=== PATIENT | female | born 1995 | race Caucasian/White ===

== ENCOUNTER 2023-10-09 07:40 | Emergency (ER) | payer OTHER, MEDICAID, SELFPAY ==
[2023-10-09 07:45] VITALS: BP 134/84; PULSE 67; RESP 17; TEMP 36.6; O2SAT 100; BMI 21.7
--- NOTE | 2023-10-09 08:10 | DI.RAD.S_ITS ---
PROCEDURE: XR CHEST 1V INDICATIONS: chest pain TECHNIQUE: One view of the chest was acquired. COMPARISON: None. FINDINGS: Surgical changes and devices: None. Lungs and pleura: Lungs are clear. No pleural effusions or pneumothorax. Mediastinum: Mediastinal contours appear normal. Heart size is normal. Bones and chest wall: No suspicious bony lesions. Overlying soft tissues appear unremarkable. IMPRESSION: No acute pulmonary process. Dictated by: Araceli Milligan M.D. on 10/09/2023 at 8:56 Approved by: Araceli Milligan M.D. on 10/09/2023 at 8:56
--- NOTE | 2023-10-09 08:12 | EKG_ITS ---
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
[2023-10-09 09:19] LABS: Add Manual Diff / Slide Review NO; Basophils Absolute Auto 0 /uL (0-100); Basophils Percent Auto 0.3 % (0-2); Eosinophils Absolute Auto 0 /uL (0-450); Eosinophils Percent Auto 0.1 % (2-4); Hematocrit 38.8 % (36-46); Lymphocytes Absolute Auto 1700 /uL (1100-4500); Lymphocytes Percent Auto 22.4 % (25-40); Mean Corpuscular HGB Conc 33.5 % (30-36); Mean Corpuscular Hemoglobin 29.2 PG (26-34); Mean Corpuscular Volume 87.2 fL (80-100); Monocytes Absolute Auto 700 /uL (0-900); Monocytes Percent Auto 8.5 % (3-14); Neutrophils Absolute Auto 5300 /uL (1500-7000); Neutrophils Percent Auto 68.7 % (50-75); Platelet Count 284 X10^3/uL (150-400); Red Blood Cell Count 4.45 X10^6/uL (4.0-5.2); Red Cell Distribution Width 13.2 % (11.6-14.8); White Blood Cell Count 7.7 X10^3/uL (4.5-11.0)
[2023-10-09 09:26] LABS: Prothrombin Time 11.9 SECONDS (9.4-12.5)
[2023-10-09 09:29] LABS: PTT Partial Thromboplastin Tim 34 SECONDS (25.1-36.5)
[2023-10-09 09:45] LABS: Alanine Aminotransferase 17 IU/L (<35); Albumin 4.6 g/dL (3.5-5.0); Albumin Globulin Ratio 1.2 (1.0-2.8); Alkaline Phosphatase 67 U/L (38-126); Aspartate Aminotransferase 33 IU/L (14-36); BUN Creatinine Ratio 18.1 (6-22); Bilirubin Total 0.7 mg/dL (0.2-1.3); Blood Urea Nitrogen 17 mg/dL (7-17); Calcium 9.7 mg/dL (8.4-10.2); Carbon Dioxide 25 mmol/L (22-32); Chloride 105 mmol/L (98-107); Creatine Kinase 69 U/L (30-135); Estimated Glomerular Filt Rate > 60 mL/min (>60); Glucose 92 mg/dL (70-100); HEMOLYSIS < 15 (0-50); Lipase 62 U/L (23-300); Magnesium 2.3 mg/dL (1.6-2.3); Potassium 4.4 mmol/L (3.4-5.1); Sodium 135 mmol/L (137-145); Total Protein 8.6 g/dL (6.3-8.2)
[2023-10-09 09:56] LABS: NT-proBNP (BNP-Adult 18+) 31 pg/mL (<125); Troponin I < 0.012 ng/mL (0.01-0.034)
--- NOTE | 2023-10-09 10:05 | ED_ITS ---
HPI - Chest Pain General Chief Complaint: Chest Pain Stated Complaint: chest pain Time Seen by Provider: 10/09/23 09:46 Source: patient Mode of arrival: Ambulatory History of Present Illness HPI narrative: Otherwise healthy 28-year-old woman who woke up this morning to get ready for traveling, while loading luggage into the car she noticed some left-sided pain she describes it initially mid clavicular line lower ribs underneath her breast than radiating around into the axilla and up toward her back. Worse with stretching, twisting, turning and deep breathing. She took 600 mg of ibuprofen prior to arrival and is feeling somewhat better. A number of years ago she had an episode of pericarditis and is looking for reassurance that this is not pericarditis or something more significant before she heads out on vacation today. She describes no recent fevers, cough, chills she is not diaphoretic. No nausea or vomiting. No skin changes or rashes. Related Data Home Medications Medication Instructions Recorded Confirmed drospirenone 3 mg-ethinyl 1 tab PO DAILY 10/09/23 10/09/23 estradiol 0.03 mg tablet (Radha) spironolactone 50 mg tablet 50 mg PO DAILY 10/09/23 10/09/23 Allergies Allergy/AdvReac Type Severity Reaction Status Date / Time No Known Drug Allergies Allergy Verified 10/09/23 09:02 Review of Systems Review of Systems Narrative: Pertinent positive and negative findings as per HPI Patient History Medical History (Updated 10/09/23 @ 10:16 by Angela Alvarez MD) Pericarditis Social History Smoking Status: Never smoker Smoking Status: Never smoker alcohol intake frequency: other Substance Use Type: does not use Exam Initial Vital Signs Initial Vital Signs: Vital Signs Temperature 98 F 10/09/23 07:45 Pulse Rate 67 10/09/23 07:45 Respiratory Rate 17 10/09/23 07:45 Blood Pressure 134/84 10/09/23 07:45 Pulse Oximetry 100 10/09/23 07:45 Oxygen Delivery Method Room Air 10/09/23 07:45 General: Healthy appearing, in no acute distress. Able to give a complete and coherent history. Well-nourished well-developed HEENT: Moist mucous membranes, normal sclera with reactive pupils, Neck: No JVD, supple Respiratory: Lungs are clear to auscultation, no wheezing no rales no rhonchi. Full and symmetrical air movement Chest: No reproducible pain with palpation along the sternal border, thoracic spine, AP or lateral compression of the ribcage. No rashes to suggest developing zoster Cardiac: Regular rate and rhythm no murmurs no bruits Abdomen: Soft, nontender, good bowel tones, no flank pain Skin: Warm and dry, no rashes Neurologic: Grossly neurologically intact with no obvious asymmetries or abnormalities Extremities: No trauma, well perfused Psych: Cooperative, appropriate insight and affect Course Orders Ordered: ED Orders 10/09/23 08:10 XR chest 1V Stat EKG-12 Lead Stat 10/09/23 09:04 Complete Blood Count AUTO DIFF Stat Comprehensive Metabolic Panel Stat Lipase Stat Magnesium Stat NT-proBNP (BNP-Adult 18+) Stat PTT Partial Thromboplastin Rangel Stat Prothrombin Time INR Stat Troponin & CK Cardiac Panel Stat Discontinued Medications Aspirin (Aspirin 81 Mg Chew Tab) 324 mg PO NOW ONE Stop: 10/09/23 08:11 Vital Signs Vital signs: Vital Signs - 8 hr 10/09/23 07:45 Temperature 98 F Pulse Rate 67 Respiratory Rate 17 Blood Pressure 134/84 Pulse Oximetry 100 Oxygen Delivery Method Room Air MDM - Chest Pain Lab Data 10/09/23 09:04 10/09/23 09:04 Labs: Lab Results 10/09/23 Range/Units 09:04 WBC 7.7 (4.5-11.0) X10^3/uL RBC 4.45 (4.0-5.2) X10^6/uL Hgb 13.0 (12.0-16.0) g/dL Hct 38.8 (36-46) % MCV 87.2 (80-100) fL MCH 29.2 (26-34) PG MCHC 33.5 (30-36) % RDW 13.2 (11.6-14.8) % Plt Count 284 (150-400) X10^3/uL Neut % (Auto) 68.7 (50-75) % Lymph % (Auto) 22.4 L (25-40) % [place] % (Auto) 8.5 (3-14) % Eos % (Auto) 0.1 L (2-4) % Baso % (Auto) 0.3 (0-2) % Neut # (Auto) 5300 (1646-7632) /uL Lymph # (Auto) 1700 (9083-2876) /uL [place] # (Auto) 700 (0-900) /uL Eos # (Auto) 0 (0-450) /uL Baso # (Auto) 0 (0-100) /uL PT 11.9 (9.4-12.5) SECONDS INR 1.0 (0.9-1.3) APTT 34 (25.1-36.5) SECONDS Sodium 135 L (137-145) mmol/L Potassium 4.4 (3.4-5.1) mmol/L Chloride 105 (98-107) mmol/L Carbon Dioxide 25 (22-32) mmol/L BUN 17 (7-17) mg/dL Creatinine 0.94 (0.52-1.04) mg/dL Estimated GFR > 60 (>60) mL/min BUN/Creatinine Ratio 18.1 (6-22) Glucose 92 (70-100) mg/dL Calcium 9.7 (8.4-10.2) mg/dL Magnesium 2.3 (1.6-2.3) mg/dL Total Bilirubin 0.7 (0.2-1.3) mg/dL AST 33 (14-36) IU/L ALT 17 (<35) IU/L Alkaline Phosphatase 67 (38-126) U/L Total Creatine Kinase 69 (30-135) U/L Troponin I < 0.012 (0.01-0.034) ng/mL NT-Pro-B Natriuret Pep 31 (<125) pg/mL Total Protein 8.6 H (6.3-8.2) g/dL Albumin 4.6 (3.5-5.0) g/dL Globulin 4.0 (1.7-4.1) g/dL Albumin/Globulin Ratio 1.2 (1.0-2.8) Lipase 62 (23-300) U/L MDM Narrative Medical decision making narrative: CC: Acute left-sided chest pain Complicating co-morbidities: Distant history of pericarditis Data collected from: patient Differential considered: Acute coronary syndrome, pneumothorax, zoster, pneumonia, musculoskeletal pain Exam documented above, pertinent findings include: Patient is examined about 2 hours after ibuprofen has been taken and pain is essentially resolved. Exam is very reassuring with no acute abnormalities Lab Test results independently reviewed as above. Pertinent findings: CBC is unremarkable Chemistries are reassuring Troponin is undetectable Independently reviewed EKG: Sinus rhythm at a rate of 63. Poor baseline overall. No acute ischemic changes. She does have an RS are pattern in leads V1 and V2, possible intraventricular conduction delay noted. Imaging studies independently reviewed: Chest x-ray is reassuring. No significant abnormalities Discussion: Otherwise healthy 28-year-old woman twisting turning lifting luggage and experienced acute left-sided chest pain this morning. With her prior history of pericarditis she wanted reassurance prior to going up to more remote locations for the next couple of days. Lab work is quite reassuring and does not suggest an acute cardiac or infectious etiology. Reviewed signs and symptoms of pericarditis, exam and labs do not suggest pericarditis at this time. Most likely episode as musculoskeletal pain particularly given the fact that the ibuprofen has been reassuring. Reviewed anticipated course of recovery, reasons to return to the emergency department. We did discuss the possibility of a single dose of prednisone to help with inflammation and she felt that ibuprofen was adequate at this time. She is safe for discharge Discharge Plan Departure Patient Disposition: Home Clinical Impression: Chest pain, musculoskeletal Instructions: DI for Atypical Chest Pain Activity Restrictions/Additional Instructions: Thank you for coming in today I believe the pain that you are experiencing is entirely musculoskeletal. There was no evidence of infection, pericarditis, heart attack, collapsed lung or alternate explanation that would require additional blood work, imaging or hospitalization today. Using 400 mg of ibuprofen (2 [id number] pills) and 1 Tylenol every 6 hours can be very helpful in controlling pain. It is okay to continue all usual activities. You are not going to make the issue worse. If you find that you are getting worse or develop any new symptoms, please feel free to return to the emergency department for further evaluation. Have a great vacation up in the [facility]! Prescriptions: No Action drospirenone-ethinyl estradiol [Radha] 3-0.03 mg tablet 1 tab PO DAILY spironolactone 50 mg tablet 50 mg PO DAILY Stand Alone Forms: Patient Portal/API
[2023-10-09 10:18] VITALS: BP 110/68; PULSE 60; RESP 16; O2SAT 100
--- NOTE | 2023-10-09 10:18 | PC.NURSE ---
Patient evaluated, treated, and discharged by provider prior to nursing assessment.
== END 2023-10-09 10:22 | disposition home or self-care (01) ==
PROVIDERS: Emergency Provider Emergency Medicine
DX: R07.89 Other chest pain (principal); Z86.79 Personal history of other diseases of the circulatory system
CPT/HCPCS: 36415; 71045; 80053; 82550; 83690; 83735; 83880; 84484; 85025; 85610; 85730; 93005; 99281; 99284